=== PATIENT | female | born 1990 | race Caucasian/White ===

== ENCOUNTER 2018-07-06 02:39 | Emergency (ER) | payer OTHER ==
[~2018-07-06] VITALS: Ht 177.8 cm; Wt 104.3 kg
[~2018-07-06 02:39] MED LIST: PEPCID40 MG PO; PHENERGAN25 MG PO
[2018-07-06] MEDS ORDERED: LEVSIN/SL0.125 MG SL (07:52)
[2018-07-06] MEDS ORDERED: PEPCID AC20 MG PO (07:52)
[2018-07-06] MEDS ORDERED: KETO10TA2 PO (07:52)
== END 2018-07-06 08:04 | disposition home or self-care (01) ==
LOC: ER 02:39
DX: K29.70 Gastritis, unspecified, without bleeding (principal); R10.11 Right upper quadrant pain

== ENCOUNTER 2018-08-26 21:04 | Emergency (ER) | payer OTHER ==
[~2018-08-26] VITALS: Ht 177.8 cm; Wt 104.3 kg
[~2018-08-26 21:04] MED LIST changes: +KETO10TA2 PO; +LEVSIN/SL0.125 MG SL; +PEPCID AC20 MG PO
== END 2018-08-27 02:16 | disposition home or self-care (01) ==
LOC: ER 21:04
DX: J11.1 Influenza due to unidentified influenza virus with other respiratory manifestations (principal)

== ENCOUNTER → 2018-09-21 | Emergency (ER) | payer OTHER ==
[~2018-09-21] VITALS: Ht 177.8 cm; Wt 104.3 kg
[~2018-09-21] MED LIST changes: +NORFLEX100MG PO
== END | disposition home or self-care (01) ==
LOC: ER 02:29
DX: M62.838 Other muscle spasm (principal); M54.89 Other dorsalgia

== ENCOUNTER 2021-05-20 23:30 | Emergency (ER) | payer OTHER ==
[~2021-05-20] VITALS: Ht 167.6 cm; Wt 104.3 kg
[2021-05-21] MEDS ORDERED: DICY20TA PO (03:06)
[2021-05-21] MEDS ORDERED: PEPCID AC20 MG PO (03:06)
[2021-05-21] MEDS ORDERED: INTESTINEX680 M2 PO (03:06)
[2021-05-21] MEDS ORDERED: PROTONIX20 MG PO (03:06)
== END 2021-05-21 05:04 | disposition home or self-care (01) ==
LOC: ER 23:30
DX: R19.7 Diarrhea, unspecified (principal); R10.9 Unspecified abdominal pain; Z03.818 Encounter for observation for suspected exposure to other biological agents ruled out

== ENCOUNTER 2021-11-07 22:29 | Emergency (ER) | payer OTHER ==
[~2021-11-07] VITALS: Ht 177.8 cm; Wt 104.3 kg
[~2021-11-07 22:29] MED LIST changes: +ACETAMINOPHEN650 M2; +DICY20TA PO; +INTESTINEX680 M2 PO; +PROTONIX20 MG PO
[2021-11-08] MEDS ORDERED: MECLIZINE HCL25 MG PO (00:59)
[2021-11-08] MEDS ORDERED: NAPROXEN500 MG PO (00:59)
== END 2021-11-08 01:12 | disposition home or self-care (01) ==
LOC: ER 22:29
DX: R42 Dizziness and giddiness (principal); R51.9 Headache, unspecified; Z88.0 Allergy status to penicillin

== ENCOUNTER 2022-08-27 17:32 | Emergency (ER) | payer OTHER ==
[~2022-08-27] VITALS: Ht 177.8 cm; Wt 103.4 kg
[~2022-08-27 17:32] MED LIST changes: +MECLIZINE HCL25 MG PO; +NAPROXEN500 MG PO
== END 2022-08-27 19:29 | disposition home or self-care (01) ==
LOC: ER 17:32
DX: J45.909 Unspecified asthma, uncomplicated (principal); Z88.0 Allergy status to penicillin

== ENCOUNTER 2022-10-27 22:13 | Emergency (ER) | payer OTHER ==
[~2022-10-27] VITALS: Ht 177.8 cm; Wt 104.3 kg
== END 2022-10-27 23:58 | disposition home or self-care (01) ==
LOC: ER 22:13
DX: K29.70 Gastritis, unspecified, without bleeding (principal); Z88.0 Allergy status to penicillin; R19.7 Diarrhea, unspecified

== ENCOUNTER → 2025-07-06 | Emergency (ER) | payer OTHER ==
[~2025-07-06] VITALS: Ht 177.8 cm; Wt 81.6 kg
[~2025-07-06] MED LIST changes: +CHLORASEPTIC177 M2 MM; +GUAIFENESIN 200 MG/10 ML BLIST.PACK PO ONE; +IPRAT-ALBUT 0.5-3 ML IH; +IPRATROPIUM/ALBUTEROL SULFATE 3 ML AMPUL.NEB IH ONE; +MUCINEX D ER 11 EACH PO; +ZITHROMAX TRI-500 MG PO
[2025-07-06 04:28] VITALS: BP 137/85; O2SAT 99
[2025-07-06 06:48] LABS: BASO % 0.3 % (0.1-1.2); EOS # 0.09 (0.04-0.54); EOS % 1.6 % (0.7-7.0); LYMPH # 1.48 (1.18-3.74); LYMPH % 25.6 % (19.3-53.1); MEAN PLATELET VOLUME 10.60 fl (9.4-12.4); MONO # 0.65 (0.24-0.82); MONO % 11.2 % (4.7-12.5); NEUT # 3.51 (1.56-6.13); NEUT % 60.8 % (34.0-71.1); RED CELL DISTRIBUTION WIDTH 11.9 % (11.6-14.4)
[2025-07-06 07:14] LABS: COVID-19 AG NEGATIVE (NEGATIVE)
[2025-07-06 07:20] LABS: BUN CREA RATIO 21.0 (7.0-25.0); CREATININE SERUM 0.63 mg/dL (0.55-1.02); GFR 106.92; GLUCOSE FASTING 97.0 mg/dL (65-100); OSMOLALITY SERUM 281.0 MOSM/KG (275-295)
== END | disposition home or self-care (01) ==
LOC: ER 04:25
PROVIDERS: Student in an Organized Health Care Education/Training Program
DX: J45.901 Unspecified asthma with (acute) exacerbation (principal); B34.9 Viral infection, unspecified; Z20.822 Contact with and (suspected) exposure to COVID-19